=== PATIENT | female | born 1945 | race Caucasian/White ===

== ENCOUNTER → 2023-02-11 | Day surgery (SDC) | payer MEDICARE, BC, OTHER ==
[~2023-02-11] VITALS: Ht 160 cm; Wt 54.4 kg
[~2023-02-11] MED LIST: ALPR0.25 PO; B-12100010 PO; BIOT1CAP2 PO; BSS IRRIG/VANCO(10MG)/TOBRA(5MG)/EPINEPH(1:1000-0.5CC)500ML BAG-ORONLY IR ONE; CALC600T61 PO; CEFUROXIME 1MG/0.1ML INTRACAMERAL INJ As Ordered ONE; CIPR0.3S37; CYCLOPENTOLATE 1% OPHTH SOLN 2ML BTL OS SCH; KETO0.5S4; LIDOCAINE 1% SDV 5ML VIAL As Ordered ONE; LIDOCAINE 3.5 % 1ML OPHTH TOPICAL GEL OU ONE; MIDAZOLAM INJ 2MG/2ML VIAL As Ordered ONE; OFLOXACIN 0.3 % (OCUFLOX) OPTH SOL 5ML OS ONE; PHENYLEPHRINE 10% OPHTH SOL 5ML OS PRN; PHENYLEPHRINE 2.5% OPHTH SOL 2ML OS SCH; TAFL1DRO6 OU; TROPICAMIDE 1% OPHTH SOLN 15ML OS SCH; VITMTA PO; fentaNYL 100 MCG/2 ML INJECTION As Ordered ONE
[2023-02-11 13:40] VITALS: BP 170/74; TEMP 98.1; O2SAT 97
== END | disposition home or self-care (01) ==
LOC: M SDC 11:39
PROVIDERS: ATTEND Ophthalmology
DX: H25.12 Age-related nuclear cataract, left eye (principal); R00.0 Tachycardia, unspecified; I44.7 Left bundle-branch block, unspecified; Z79.899 Other long term (current) drug therapy; Z88.0 Allergy status to penicillin; Z88.2 Allergy status to sulfonamides
CPT/HCPCS: 66984; J0697; J2250; J3010; V2632